=== PATIENT | female | born 1970 | race Caucasian/White ===

== ENCOUNTER → 2023-11-06 15:30 | Outpatient (CLI) | payer BC, SELFPAY ==
--- NOTE | 2023-11-06 15:33 | DI.RAD.S_ITS ---
PROCEDURE: XR HAND RT MIN 3V INDICATIONS: Right hand pain - 5th metacarpal TECHNIQUE: 3 views of the hand(s) acquired. COMPARISON: None. FINDINGS: Bones: There is a oblique fracture of the midshaft right 4th metacarpal with overlying soft tissue edema. Remainder of the visualized osseous structures appear intact.. Carpal bones are normally aligned. No suspicious bony lesions. Soft tissues: No suspicious soft tissue calcifications. IMPRESSION: Acute, mildly displaced displaced fracture of the right 4th metacarpal shaft. Dictated by: Jai Garcia M.D. on 11/06/2023 at 15:48 Approved by: Jai Garcia M.D. on 11/06/2023 at 15:49
== END ==
PROVIDERS: Referring Provider Registered Nurse; Visit Provider Registered Nurse
DX: S62.324A Displaced fracture of shaft of fourth metacarpal bone, right hand, initial encounter for closed fracture (principal); M79.641 Pain in right hand
CPT/HCPCS: 73130